=== PATIENT | female | born 1985 | race African-American/Black ===

== ENCOUNTER 2017-04-29 10:34 | Emergency (ER) | payer MEDICAID ==
[~2017-04-29] VITALS: Ht 175.3 cm; Wt 100.0 kg
[~2017-04-29 10:34] MED LIST: BENZ100 PO; NAPR500 PO; Z.0.NO CURRENT MEDS; ZITH250T PO
[2017-04-29 10:35] VITALS: BP 120/74; PULSE 105; RESP 20; TEMP 98.6; O2SAT 99
--- NOTE | 2017-04-29 10:46 | PD ---
HPI Chief Complaint: Chest Pain Time Seen by Provider: 10:43 Travel History International Travel<30 days: No Contact w/Intl Traveler<30days: No Traveled to known affect area: No History of Present Illness HPI 31 YO F with PMH of DMT2, insulin dependent, presents to the ED for evaluation of 24 hour history of gradual onset, "pushing," constant left sided CP. Rated 9 /10. Endorses associated palpitations. Worsened by swallowing and coughing. Also complains of 24-hour history of loose, nonbloody stools. The patient denies radiation of the pain, fever, chills, nausea, vomiting, shortness of breath, abdominal pain, dysuria, lower extremity edema. She states that she used insulin this morning but has not been checking her blood sugars. She denies risk of . Last menstrual period "last week." She does not use oral contraception. Occasional drinker, current smoker, denies illicit drug use. Mother from complications of CHF. Uncle with a pacemaker due to arrhythmias. She is followed by Dr. Amaral. [facility] Past Medical History Diabetes: Yes Diminished Hearing: No ?: Not LMP: 04/22/17 : 1 Para: 1 Social History Alcohol Use: Yes (OCC) Tobacco Use: Yes (1./ PPD) Substance Use: Yes (MARIJUANA ) Allergies-Medications (Allergen,Severity, Reaction): Coded Allergies: No Known Allergies (Verified , 04/29/17) Reported Meds & Prescriptions Reported Meds & Active Scripts Active Reported Lantus Inj (Insulin Glargine) 1,000 Unit/10 Ml Vial 25 Units SQ HS Novolog Inj (Insulin Aspart) 1,000 Unit/10 Ml Vial 0 SQ DIRECTED Sliding Scale as directed. Review of Systems Except as stated in HPI: all other systems reviewed are Neg Physical Exam Narrative GENERAL: Well-nourished, well-developed black female in no acute distress. SKIN: Focused skin assessment warm/dry. HEAD: Normocephalic. EYES: No scleral icterus. No injection or drainage. NECK: Supple, trachea midline. No JVD or lymphadenopathy. CARDIOVASCULAR: Regular rate and rhythm without murmurs, gallops, or rubs. CHEST: Nontender throughout without deformity or crepitus. No retractions. RESPIRATORY: Breath sounds here and equal bilaterally. No accessory muscle use. GASTROINTESTINAL: Abdomen soft, nondistended. Tender palpation in the epigastric region. Active bowel sounds. MUSCULOSKELETAL: No cyanosis, or edema. Homans sign negative bilaterally. BACK: Nontender without obvious deformity. No CVA tenderness. Data Data Last Documented VS Vital Signs Date Time Temp Pulse Resp B/P (MAP) Pulse Ox O2 Delivery O2 Flow Rate FiO2 04/29/17 10:52 89 18 133/81 (98) 100 Room Air 04/29/17 10:35 98.6 Orders Orders Influenzae A/B Antigen (04/29/17 10:49) Electrocardiogram (04/29/17 10:49) Ecg Monitoring (04/29/17 10:49) Oximetry (04/29/17 10:49) Chest, Single Ap (04/29/17 10:49) Urinalysis - C+S If Indicated (04/29/17 10:49) Ed Urine Pregnancytest Poc (04/29/17 10:49) Blood Glucose (04/29/17 10:57) Iv Access Insert/Monitor (04/29/17 10:57) Ckmb (Isoenzyme) Profile (04/29/17 11:02) Complete Blood Count With Diff (04/29/17 11:02) Comprehensive Metabolic Panel (04/29/17 11:02) D-Dimer (04/29/17 11:02) Magnesium (Mg) (04/29/17 11:02) Prothrombin Time / Inr (Pt) (04/29/17 11:02) Act Partial Throm Time (Ptt) (04/29/17 11:02) Troponin I (04/29/17 11:02) Lipase (04/29/17 11:02) Aspirin (Aspirin) (04/29/17 11:15) Beta Hydroxybutyrate (Acetone) (04/29/17 11:02) CKMB (04/29/17 11:05) CKMB% (04/29/17 11:05) Sodium Chlor 0.9% 1000 Ml Inj (Ns 1000 M (04/29/17 12:45) Admit Order (Ed Use Only) (04/29/17 13:15) Labs Laboratory Tests Test 04/29/17 11:05 White Blood Count 3.7 TH/MM3 Red Blood Count 4.07 MIL/MM3 Hemoglobin 13.3 GM/DL Hematocrit 40.1 % Mean Corpuscular Volume 98.4 FL Mean Corpuscular Hemoglobin 32.8 PG Mean Corpuscular Hemoglobin Concent 33.3 % Red Cell Distribution Width 13.8 % Platelet Count 131 TH/MM3 Mean Platelet Volume 9.5 FL Neutrophils (%) (Auto) 55.6 % Lymphocytes (%) (Auto) 27.3 % Monocytes (%) (Auto) 16.3 % Eosinophils (%) (Auto) 0.3 % Basophils (%) (Auto) 0.5 % Neutrophils # (Auto) 2.1 TH/MM3 Lymphocytes # (Auto) 1.0 TH/MM3 Monocytes # (Auto) 0.6 TH/MM3 Eosinophils # (Auto) 0.0 TH/MM3 Basophils # (Auto) 0.0 TH/MM3 CBC Comment DIFF FINAL Differential Comment Prothrombin Time 11.0 SEC Prothromb Time International Ratio 1.0 RATIO Activated Partial Thromboplast Time 29.4 SEC D-Dimer Quantitative (PE/DVT) 0.37 MG/L FEU Urine Color LIGHT-YELLOW Urine Turbidity CLEAR Urine pH 5.5 Urine Specific [employer] 1.032 Urine Protein TRACE mg/dL Urine Glucose (UA) 1000 mg/dL Urine Ketones 150 mg/dL Urine Occult Blood NEG Urine Nitrite NEG Urine Bilirubin NEG Urine Urobilinogen LESS THAN 2.0 MG/DL Urine Leukocyte Esterase NEG Urine RBC 1 /hpf Urine WBC 2 /hpf Urine Squamous Epithelial Cells 2 /hpf Microscopic Urinalysis Comment CULT NOT INDICATED Blood Urea Nitrogen 5 MG/DL Creatinine 0.76 MG/DL Random Glucose 345 MG/DL Total Protein 7.2 GM/DL Albumin 3.4 GM/DL Calcium Level 8.8 MG/DL Magnesium Level 1.5 MG/DL Alkaline Phosphatase 69 U/L Aspartate Amino Transf (AST/SGOT) 10 U/L Alanine Aminotransferase (ALT/SGPT) 16 U/L Total Bilirubin 0.3 MG/DL Sodium Level 134 MEQ/L Potassium Level 3.7 MEQ/L Chloride Level 100 MEQ/L Carbon Dioxide Level 18.9 MEQ/L Anion Gap 15 MEQ/L Estimat Glomerular Filtration Rate 107 ML/MIN Total Creatine Kinase 108 U/L Creatine Kinase MB 1.6 NG/ML Troponin I LESS THAN 0.02 NG/ML Lipase 90 U/L B-Hydroxybutyrate 8.24 MMOL/L MDM Medical Decision Making Medical Screen Exam Complete: Yes Emergency Medical Condition: Yes Differential Diagnosis chest pain versus ACS versus PE versus PNA versus GERD versus DKA versus other Narrative Course 31 YO F with PMH of DMT2, insulin dependent, presents to the ED for evaluation of 24 hour history of gradual onset, "pushing," constant left sided CP. Rated 9 /10 with associated palpitations. Worsened by swallowing and coughing. Also complains of 24-hour history of loose, nonbloody stools. The patient denies radiation of the pain, fever, chills, nausea, vomiting, shortness of breath, abdominal pain, dysuria, lower extremity edema. She states that she used insulin this morning but has not been checking her blood sugars. Occasional drinker, current smoker, denies illicit drug use. Mother from complications of CHF. Uncle with a pacemaker due to arrhythmias. She is followed by Dr. Amaral. Vitals reviewed. Patient tachycardic in triage with this resolves during the course of the evaluation. Physical exam is reassuring. Glucose 354 by fingerstick. IV was established. Patient administered ASA and a liter of fluids. EKG: rate 82, sinus rhythm. Normal intervals. Normal axis. No ST changes. Reviewed by Dr. Gallegos. Cardiac enzymes negative 1. CXR: Heart top limit of normal. No acute cardiac primary process per radiology read. DDimer negative. No concerning abnormalities of the CBC. CMP reveals blood glucose 345. On recheck the patient reports that her pain has eased spontaneously. I discussed the results of her workup and her risk of cardiac event. Patient agreeable to admission to the chest pain center. I discussed the case with Dr. Kohli who states that the patient's blood glucose is too high for the [employer]. I talked with Dr. Mayer who suggests rechecking blood glucose. Fingerstick blood glucose 264. Second troponin negative. I discussed the workup with the patient. I think she is safe for follow-up with her primary care provider. Patient is agreeable with this plan. She is stable and discharged home. Diagnosis Primary Impression: Chest pain Qualified Codes: R07.9 - Chest pain, unspecified Additional Impression: Hyperglycemia due to type 2 diabetes mellitus Qualified Codes: E11.65 - Type 2 diabetes mellitus with hyperglycemia; Z79.4 - [facility] (current) use of insulin Referrals: Primary Care Physician Patient Instructions: General Instructions Additional Instructions: Rest, hydrate. Check your blood sugars regularly to assure that you are taking enough insulin. Follow up with you PCP for further evaluation, including referral to cardiology. Return to the ED for any urgent or emergent medical condition. Disposition: 01 DISCHARGE HOME Condition: Stable [place] Echols Apr 29, 2017 10:46
[2017-04-29 10:52] VITALS: BP 133/81; PULSE 89; RESP 18; O2SAT 100
[2017-04-29] MEDS ORDERED: LANTUS2P SQ (11:00)
[2017-04-29] MEDS ORDERED: NOVOLOGP2 SQ (11:00)
[2017-04-29] MEDS ORDERED: ASPIRIN 325 MG TAB PO ONE (11:15)
[2017-04-29 11:49] LABS: AUTOMATED NEUTROPHIL # 2.1 TH/MM3 (1.8-7.7); BASOPHIL % 0.5 % (0.0-2.0); EOSINOPHIL % 0.3 % (0.0-4.0); HEMATOCRIT 40.1 % (35.0-46.0); HEMOGLOBIN 13.3 GM/DL (11.6-15.3); LYMPH % 27.3 % (9.0-44.0); MEAN CELL VOLUME 98.4 FL (80.0-100.0); MEAN CORPUSCULAR HEMOGLOBIN 32.8 PG (27.0-34.0); MEAN CORPUSCULAR HGB CONC 33.3 % (32.0-36.0); MEAN PLATELET VOLUME 9.5 FL (7.0-11.0); MONO % 16.3 % (0.0-8.0); MONOCYTE # 0.6 TH/MM3 (0-0.9); NEUT % 55.6 % (16.0-70.0); PLATELET COUNT 131 TH/MM3 (150-450); RED BLOOD COUNT 4.07 MIL/MM3 (4.00-5.30); RED CELL DISTRIBUTION WIDTH 13.8 % (11.6-17.2); WHITE BLOOD COUNT 3.7 TH/MM3 (4.0-11.0)
[2017-04-29 11:51] LABS: BILIRUBIN, URINE NEG (NEG); BLOOD, URINE NEG (NEG); GLUCOSE,URINE 1000 mg/dL (NEG); KETONE, URINE 150 mg/dL (NEG); NITRITE,URINE NEG (NEG); PH, URINE 5.5 (5.0-8.5); SQUAMOUS EPITHELIAL CELL URINE 2 /hpf (0-5); URINE COLOR LIGHT-YELLOW (YELLW/STRAW); URINE LEUKOCYTE ESTERASE NEG (NEG)
[2017-04-29 12:03] LABS: D-DIMER 0.37 MG/L FEU (0.00-0.50)
[2017-04-29 12:12] LABS: ALBUMIN 3.4 GM/DL (3.4-5.0); AST (GOT) 10 U/L (15-37); BICARBONATE 18.9 MEQ/L (21.0-32.0); BLOOD UREA NITROGEN 5 MG/DL (7-18); CALCIUM 8.8 MG/DL (8.5-10.1); CHLORIDE 100 MEQ/L (98-107); CREATININE 0.76 MG/DL (0.50-1.00); GLOMERULAR FILTRATION RATE 107 ML/MIN (>89); GLUCOSE,RANDOM 345 MG/DL (74-106); LIPASE 90 U/L (73-393); MAGNESIUM 1.5 MG/DL (1.5-2.5); SODIUM (NA) 134 MEQ/L (136-145)
[2017-04-29 12:23] LABS: ALKALINE PHOSPHATASE 69 U/L (45-117); ALT (GPT) 16 U/L (10-53); TOTAL BILIRUBIN ADULT 0.3 MG/DL (0.2-1.0); TOTAL PROTEIN 7.2 GM/DL (6.4-8.2); TROPONIN I LESS THAN 0.02 NG/ML (0.02-0.05)
[2017-04-29] MEDS ORDERED: SODIUM CHLOR 0.9% 1000 ML INJ 1,000 ML IV ONE (12:45)
--- NOTE | 2017-04-29 13:09 | RADRPT ---
EXAM DATE/TIME: 04/29/2017 12:12 [place] COMPARISON: No previous studies available for comparison. INDICATIONS : Chest pain. MEDICAL HISTORY : None. SURGICAL HISTORY : None. ENCOUNTER: Initial ACUITY: 1 day PAIN SCORE: 7/10 LOCATION: Bilateral chest FINDINGS: The heart is top normal to minimally prominent in size. The pulmonary vascular pattern is normal. T he lungs are clear. CONCLUSION: 1. Top normal to minimally prominent heart. Clinical correlation is recommended. 2. No acute focal pulmonary infiltrate or pulmonary vascular congestion. Andry De Leon MD on April 29, 2017 at 12:35 Board Certified Radiologist. This report was verified electronically.
[2017-04-29 15:02] VITALS: BP 122/67; PULSE 68; RESP 17; O2SAT 100
[2017-04-29] MEDS ORDERED: ACETAMINOPHEN 500 MG CPLT PO PRN (15:15)
[2017-04-29] MEDS ORDERED: ONDANSETRON HCL 4 MG/2 ML VIAL IV PUSH PRN (15:15)
[2017-04-29] MEDS ORDERED: ACETAMINOPHEN/HYDROcodone 325 MG/7.5 MG TAB PO PRN (15:15)
[2017-04-29] MEDS ORDERED: MORPHINE SULFATE 4 MG/ML INJ IV PUSH PRN (15:15)
[2017-04-29] MEDS ORDERED: RESP: ALBUTEROL 2.5 MG/IPRATROPIUM 0.5 MG NEB (PRN) NEB (15:15)
[2017-04-29] MEDS ORDERED: GLUCAGON 1 MG/ML VIAL OTHER PRN (15:15)
[2017-04-29] MEDS ORDERED: DEXTROSE 50% IN WATER 50 ML VIAL(D50) IV PUSH PRN (15:15)
[2017-04-29] MEDS ORDERED: NITROGLYCERIN 0.4 MG SL 25 TABS/BTL SL PRN (15:15)
[2017-04-29] MEDS ORDERED: TEMAZEPAM 15 MG CAP PO PRN (15:15)
[2017-04-29] MEDS ORDERED: SODIUM CHLORIDE 0.9% FLUSH 10 ML FLUSH IV FLUSH PRN (15:15)
[2017-04-29] MEDS ORDERED: ENALAPRILAT 2.5 MG/2 ML VIAL IV PUSH PRN (15:15)
[2017-04-29 15:55] LABS: BICARBONATE 18.9 MEQ/L (21.0-32.0); CALCIUM 8.2 MG/DL (8.5-10.1); CREATININE 0.69 MG/DL (0.50-1.00)
[2017-04-29 16:31] VITALS: BP 128/63
[2017-04-29] MEDS ORDERED: INSULIN ASPART SUPPLEMENTAL SCALE SQ SCH (17:00)
--- NOTE | 2017-04-29 19:00 | PD ---
Data Data Last Documented VS Vital Signs Date Time Temp Pulse Resp B/P (MAP) Pulse Ox O2 Delivery O2 Flow Rate FiO2 04/29/17 10:52 89 18 133/81 (98) 100 Room Air 04/29/17 10:35 98.6 Orders Orders Influenzae A/B Antigen (04/29/17 10:49) Electrocardiogram (04/29/17 10:49) Ecg Monitoring (04/29/17 10:49) Oximetry (04/29/17 10:49) Chest, Single Ap (04/29/17 10:49) Urinalysis - C+S If Indicated (04/29/17 10:49) Ed Urine Pregnancytest Poc (04/29/17 10:49) Blood Glucose (04/29/17 10:57) Iv Access Insert/Monitor (04/29/17 10:57) Ckmb (Isoenzyme) Profile (04/29/17 11:02) Complete Blood Count With Diff (04/29/17 11:02) Comprehensive Metabolic Panel (04/29/17 11:02) D-Dimer (04/29/17 11:02) Magnesium (Mg) (04/29/17 11:02) Prothrombin Time / Inr (Pt) (04/29/17 11:02) Act Partial Throm Time (Ptt) (04/29/17 11:02) Troponin I (04/29/17 11:02) Lipase (04/29/17 11:02) Aspirin (Aspirin) (04/29/17 11:15) Beta Hydroxybutyrate (Acetone) (04/29/17 11:02) CKMB (04/29/17 11:05) CKMB% (04/29/17 11:05) Sodium Chlor 0.9% 1000 Ml Inj (Ns 1000 M (04/29/17 12:45) Admit Order (Ed Use Only) (04/29/17 13:15) Labs Laboratory Tests Test 04/29/17 11:05 White Blood Count 3.7 TH/MM3 Red Blood Count 4.07 MIL/MM3 Hemoglobin 13.3 GM/DL Hematocrit 40.1 % Mean Corpuscular Volume 98.4 FL Mean Corpuscular Hemoglobin 32.8 PG Mean Corpuscular Hemoglobin Concent 33.3 % Red Cell Distribution Width 13.8 % Platelet Count 131 TH/MM3 Mean Platelet Volume 9.5 FL Neutrophils (%) (Auto) 55.6 % Lymphocytes (%) (Auto) 27.3 % Monocytes (%) (Auto) 16.3 % Eosinophils (%) (Auto) 0.3 % Basophils (%) (Auto) 0.5 % Neutrophils # (Auto) 2.1 TH/MM3 Lymphocytes # (Auto) 1.0 TH/MM3 Monocytes # (Auto) 0.6 TH/MM3 Eosinophils # (Auto) 0.0 TH/MM3 Basophils # (Auto) 0.0 TH/MM3 CBC Comment DIFF FINAL Differential Comment Prothrombin Time 11.0 SEC Prothromb Time International Ratio 1.0 RATIO Activated Partial Thromboplast Time 29.4 SEC D-Dimer Quantitative (PE/DVT) 0.37 MG/L FEU Urine Color LIGHT-YELLOW Urine Turbidity CLEAR Urine pH 5.5 Urine Specific [place] 1.032 Urine Protein TRACE mg/dL Urine Glucose (UA) 1000 mg/dL Urine Ketones 150 mg/dL Urine Occult Blood NEG Urine Nitrite NEG Urine Bilirubin NEG Urine Urobilinogen LESS THAN 2.0 MG/DL Urine Leukocyte Esterase NEG Urine RBC 1 /hpf Urine WBC 2 /hpf Urine Squamous Epithelial Cells 2 /hpf Microscopic Urinalysis Comment CULT NOT INDICATED Blood Urea Nitrogen 5 MG/DL Creatinine 0.76 MG/DL Random Glucose 345 MG/DL Total Protein 7.2 GM/DL Albumin 3.4 GM/DL Calcium Level 8.8 MG/DL Magnesium Level 1.5 MG/DL Alkaline Phosphatase 69 U/L Aspartate Amino Transf (AST/SGOT) 10 U/L Alanine Aminotransferase (ALT/SGPT) 16 U/L Total Bilirubin 0.3 MG/DL Sodium Level 134 MEQ/L Potassium Level 3.7 MEQ/L Chloride Level 100 MEQ/L Carbon Dioxide Level 18.9 MEQ/L Anion Gap 15 MEQ/L Estimat Glomerular Filtration Rate 107 ML/MIN Total Creatine Kinase 108 U/L Creatine Kinase MB 1.6 NG/ML Troponin I LESS THAN 0.02 NG/ML Lipase 90 U/L B-Hydroxybutyrate 8.24 MMOL/L [facility] Supervised Visit with IRENE: Yes Narrative Course The history, exam, and medical decision-making in the associated midlevel provider note were completed with my assistance. I reviewed and agree with the findings presented. I attest that I had a [id number] encounter with the patient on the same day, and personally performed and documented my assessment and findings in the medical record. *My assessment and Findings: This is a 31-year-old female who presents to the emergency department with chest pain. She has type 2 diabetes. She was placed on a monitor and an IV was established. EKG was nonischemic. Labs are obtained which demonstrate hyperglycemia. She was given IV fluids and her blood sugar improved. Two serial cardiac enzymes were obtained which were reassuring. Given the patient's age I think it's reasonable for her to follow up as an outpatient. Patient will be discharged home. Diagnosis Primary Impression: Chest pain Additional Impression: Hyperglycemia due to type 2 diabetes mellitus Referrals: Primary Care Physician Patient Instructions: General Instructions, Chest Pain (ED), Diabetic Hyperglycemia (ED) Departure Forms: Tests/Procedures Additional Instruction: Rest, hydrate. Check your blood sugars regularly to assure that you are taking enough insulin. Follow up with you PCP for further evaluation, including referral to cardiology. Return to the ED for any urgent or emergent medical condition. Disposition: 01 DISCHARGE HOME Condition: Stable Halie Gallegos MD Apr 29, 2017 18:59
[2017-04-29] MEDS ORDERED: FAMOTIDINE 20 MG TAB PO SCH (21:00)
[2017-04-29] MEDS ORDERED: SODIUM CHLORIDE 0.9% FLUSH 10 ML FLUSH IV FLUSH SCH (21:00)
[2017-04-29] MEDS ORDERED: INSULIN GLARGINE 1,000 UNITS/10 ML VIAL SQ SCH (21:00)
[2017-04-30] MEDS ORDERED: ASPIRIN EC 81 MG TABEC PO SCH (09:00)
--- NOTE | 2017-04-30 22:03 | EKG ---
Date Performed: 04/29/2017 Time Performed: 10:58:37 PTAGE: 31 years EKG: Sinus rhythm NORMAL ECG NO PREVIOUS TRACING DOCTOR: Spencer Hackett Interpretating Date/Time 04/30/2017 21:43:59
--- NOTE | 2017-04-30 22:03 | EKG ---
Date Performed: 04/29/2017 Time Performed: 10:58:37 PTAGE: 31 years EKG: Sinus rhythm NORMAL ECG NO PREVIOUS TRACING DOCTOR: Spencer Hackett Interpretating Date/Time 04/30/2017 21:43:59
--- NOTE | 2017-04-30 22:03 | EKG ---
Date Performed: 04/29/2017 Time Performed: 10:58:37 PTAGE: 31 years EKG: Sinus rhythm NORMAL ECG NO PREVIOUS TRACING DOCTOR: Spencer Hackett Interpretating Date/Time 04/30/2017 21:43:59
== END 2017-04-29 16:31 | disposition home or self-care (01) ==
LOC: NEPD 10:34 → NEDA 13:16 → UNDOADMOB 13:16 → NEPD 16:31
DX: R07.9 Chest pain, unspecified (principal); E11.65 Type 2 diabetes mellitus with hyperglycemia; F17.210 Nicotine dependence, cigarettes, uncomplicated; Z79.4 Long term (current) use of insulin
CPT/HCPCS: 71010; 80053; 81001; 82010; 82550; 82552; 83690; 83735; 84484; 84703; 85025; 85379; 85610; 85730; 87804; 93005; 99285; J7030; 80048